=== PATIENT | male | born 1960 | race Caucasian/White ===

== ENCOUNTER 2019-01-12 01:27 | Emergency (ER) | payer MEDICAID ==
[~2019-01-12] VITALS: Ht 177.8 cm; Wt 90.9 kg
[2019-01-12 01:48] VITALS: BP 138/93
[2019-01-12] MEDS ORDERED: ondansetron 4mg rapidly disintigrating tab PO ONE (02:00)
[2019-01-12] MEDS ORDERED: dexamethasone 4mg/ml inj IM ONE (02:15)
[2019-01-12] MEDS ORDERED: triamcinolone acetonide 40mg/ml inj IM ONE (02:15)
--- NOTE | 2019-01-12 02:16 | NUR ---
Visited with the patient. He is not SI or HI. He says that he just is a drunk that has basically burned all of his bridges. He said he has been on the streets since the end of July. He said that he had wanted to go to [place]. He has no family there, but he was there once and [place] "not like [place]." He has his family here. He said he has been a drunk since 1980. He said "since I was a [employer]." When I told him that I had homework for him: To not drink or do any more marijuana he said "I wont do any more marijuna but I am going to drink." And he started to cry. I quietly told the patient "It isn't working for you, you can rebuild your life without it." He said "its all I got."
== END 2019-01-12 02:56 | disposition home or self-care (01) ==
LOC: ER 01:27
DX: L23.7 Allergic contact dermatitis due to plants, except food (principal); Z59.0 Homelessness
CPT/HCPCS: 96372; 99283; J1100; J2405; J3301

== ENCOUNTER 2019-06-18 10:38 | Emergency (ER) | payer MEDICAID ==
[~2019-06-18] VITALS: Ht 177.8 cm; Wt 90.9 kg
[2019-06-18 11:01] VITALS: BP 152/83
[2019-06-18] MEDS ORDERED: proparacaine 0.5% ophthalmic drops 15ml EACHEYE ONE (12:20)
== END 2019-06-18 13:52 | disposition home or self-care (01) ==
LOC: ER 10:38
DX: H57.13 Ocular pain, bilateral (principal); Z59.0 Homelessness; Z56.0 Unemployment, unspecified; Z88.0 Allergy status to penicillin
CPT/HCPCS: 99282

== ENCOUNTER 2020-07-05 14:10 | Emergency (ER) | payer MEDICAID ==
[~2020-07-05] VITALS: Ht 177.8 cm; Wt 90.9 kg
[2020-07-05 14:15] VITALS: BP 127/74
== END 2020-07-05 15:48 | disposition left against medical advice (07) ==
LOC: ER 14:12
DX: N50.819 Testicular pain, unspecified (principal); Z53.21 Procedure and treatment not carried out due to patient leaving prior to being seen by health care provider

== ENCOUNTER 2020-07-06 06:20 | Emergency (ER) | payer MEDICAID | END 2020-07-06 07:19 | disposition left against medical advice (07) | LOC: ER 06:20 | DX: R21 Rash and other nonspecific skin eruption (principal); Z53.21 Procedure and treatment not carried out due to patient leaving prior to being seen by health care provider ==

== ENCOUNTER 2020-07-10 08:55 | Emergency (ER) | payer MEDICAID ==
[~2020-07-10] VITALS: Ht 177.8 cm; Wt 91.5 kg
[2020-07-10 09:10] VITALS: BP 132/90
[2020-07-10] MEDS ORDERED: DOXY100C77 PO (11:47)
== END 2020-07-10 12:07 | disposition home or self-care (01) ==
LOC: ER 08:55
DX: S80.861A Insect bite (nonvenomous), right lower leg, initial encounter (principal); L03.115 Cellulitis of right lower limb; Z72.89 Other problems related to lifestyle; Z56.0 Unemployment, unspecified; Z59.0 Homelessness; Z79.2 Long term (current) use of antibiotics; W57.XXXA Bitten or stung by nonvenomous insect and other nonvenomous arthropods, initial encounter; Y93.89 Activity, other specified; Y92.89 Other specified places as the place of occurrence of the external cause; Y99.8 Other external cause status
CPT/HCPCS: 99283

== ENCOUNTER 2021-06-28 16:13 | Emergency (ER) | payer MEDICAID ==
[~2021-06-28] VITALS: Ht 177.8 cm; Wt 84.0 kg
[2021-06-28 16:13] VITALS: BP 125/83
[2021-06-28] MEDS ORDERED: DOXYCYCLINE 100MG CAPSULE PO STA (16:40)
[2021-06-28] MEDS ORDERED: dexamethasone 4mg tablet PO ONE (16:40)
[2021-06-28] MEDS ORDERED: DOXY100C43 PO (16:41)
[2021-06-28] MEDS ORDERED: PRED20TA PO (16:41)
[2021-06-28] MEDS ORDERED: ALBU18HF2 INH (16:41)
--- NOTE | 2021-06-28 17:50 | NUR ---
Pt given and understands d/c instructions. Ambulatory with a steady gait.
== END 2021-06-28 17:50 | disposition home or self-care (01) ==
LOC: ER 16:14
DX: J20.9 Acute bronchitis, unspecified (principal); Z88.0 Allergy status to penicillin; Z59.00 Homelessness unspecified; Z79.2 Long term (current) use of antibiotics; Z79.899 Other long term (current) drug therapy; Z72.89 Other problems related to lifestyle; Z56.0 Unemployment, unspecified
CPT/HCPCS: 99283

== ENCOUNTER 2021-07-14 22:00 | Emergency (ER) | payer MEDICAID ==
[~2021-07-14] VITALS: Ht 180.3 cm; Wt 84.1 kg
[~2021-07-14 22:00] MED LIST: ALBU18HF2 INH; PRED20TA PO
[2021-07-14 22:09] VITALS: BP 96/67
== END 2021-07-14 22:35 | disposition home or self-care (01) ==
LOC: ER 22:02
DX: L98.8 Other specified disorders of the skin and subcutaneous tissue (principal); Z72.89 Other problems related to lifestyle; Z56.0 Unemployment, unspecified; Z59.00 Homelessness unspecified; Z88.0 Allergy status to penicillin; Z79.899 Other long term (current) drug therapy
CPT/HCPCS: 99281

== ENCOUNTER 2021-08-18 12:39 | Emergency (ER) | payer MEDICAID ==
[~2021-08-18] VITALS: Ht 177.8 cm; Wt 84.1 kg
[~2021-08-18 12:39] MED LIST changes: -PRED20TA PO
[2021-08-18 12:44] VITALS: BP 112/83
== END 2021-08-18 14:45 | disposition left against medical advice (07) ==
LOC: ER 12:39
DX: M79.643 Pain in unspecified hand (principal); Z53.21 Procedure and treatment not carried out due to patient leaving prior to being seen by health care provider

== ENCOUNTER 2021-09-08 00:48 | Emergency (ER) | payer MEDICAID ==
[~2021-09-08] VITALS: Ht 177.8 cm; Wt 79.5 kg
[2021-09-08 00:59] VITALS: BP 128/92
[2021-09-08] MEDS ORDERED: TERB30CR13 TOP (01:23)
[2021-09-08] MEDS ORDERED: clotrimazole topical cream 15gm tube TP STA (01:26)
== END 2021-09-08 01:56 | disposition home or self-care (01) ==
LOC: ER 00:49
DX: B35.4 Tinea corporis (principal); F19.90 Other psychoactive substance use, unspecified, uncomplicated; Z72.89 Other problems related to lifestyle; Z56.0 Unemployment, unspecified; Z59.00 Homelessness unspecified; Z88.0 Allergy status to penicillin; Z79.899 Other long term (current) drug therapy
CPT/HCPCS: 82948; 99282

== ENCOUNTER 2021-09-20 10:33 | Emergency (ER) | payer MEDICAID ==
[~2021-09-20 10:33] MED LIST changes: +TERB30CR13 TOP
== END 2021-09-20 11:49 | disposition left against medical advice (07) ==
LOC: EEVIPCON 10:33 → ER 10:33
DX: R68.84 Jaw pain (principal); Z53.21 Procedure and treatment not carried out due to patient leaving prior to being seen by health care provider

== ENCOUNTER 2021-12-03 06:40 | Emergency (ER) | payer MEDICAID | END 2021-12-03 08:29 | disposition left against medical advice (07) | LOC: ER 06:41 | DX: H57.89 Other specified disorders of eye and adnexa (principal); Z53.21 Procedure and treatment not carried out due to patient leaving prior to being seen by health care provider ==